=== PATIENT | male | born 1980 | race Caucasian/White ===

== ENCOUNTER 2016-09-13 04:44 | Emergency (ER) | payer BC, OTHER ==
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
[2016-09-13] MEDS ORDERED: IPRATROPIUM/ALBUTEROL 0.5-2.5 MG/3 ML AMPUL NEB ONE ×2 (05:17)
[2016-09-13] MEDS ORDERED: METHYLPREDNISOLONE INJ 125 MG/2 ML SDV IV ONE (05:17)
[2016-09-13 05:42] LABS: ABSOLUTE BASOPHILS # (AUTO) 0.1 10^3/uL (0.0-0.2); ABSOLUTE EOSINOPHILS # (AUTO) 0.9 10^3/uL (0.0-0.6); ABSOLUTE LYMPHOCYTES (AUTO) 1.2 10^3/uL (0.5-4.7); ABSOLUTE MONOCYTES (AUTO) 0.6 10^3/uL (0.1-1.4); BASOPHILS % (AUTO) 0.6 % (0-2); EOSINOPHILS % (AUTO) 10.6 % (0-6); HEMATOCRIT 39.6 % (37.9-51.0); HEMOGLOBIN 13.4 g/dL (13.5-17.0); HGB HCT DIFFERENCE 0.6; LYMPHOCYTES % (AUTO) 13.8 % (13-45); MEAN CORPUSCULAR HEMOGLOBIN 28.3 pg (27.0-33.4); MEAN CORPUSCULAR HGB CONC 33.9 g/dL (32.0-36.0); MEAN CORPUSCULAR VOLUME 84 fl (80-97); MONOCYTES % (AUTO) 7.3 % (3-13); RED BLOOD COUNT 4.75 10^6/uL (4.35-5.55); RED CELL DISTRIBUTION WIDTH 12.5 % (11.5-14.0); SEGMENTED NEUTROPHILS % (AUTO) 67.7 % (42-78); WHITE BLOOD COUNT 8.8 10^3/uL (4.0-10.5)
[2016-09-13] MEDS: MAGNESIUM SULFATE/D5W 100 ML IV SCH ×2 (05:52→06:22)
[2016-09-13 05:54] LABS: ALANINE AMINOTRANSFERASE 47 U/L (21-72); ALBUMIN 4.1 g/dL (3.5-5.0); ALKALINE PHOSPHATASE 99 U/L (38-126); ANION GAP 12 (5-19); ASPARTATE AMINO TRANSFERASE 55 U/L (17-59); BILIRUBIN,DIRECT 0.3 mg/dL (0.0-0.4); BILIRUBIN,TOTAL 0.6 mg/dL (0.2-1.3); BLOOD UREA NITROGEN 10 mg/dL (7-20); CALCIUM 9.4 mg/dL (8.4-10.2); CARBON DIOXIDE 26 mmol/L (22-30); CHLORIDE 102 mmol/L (98-107); CREATININE RESULT 0.74 mg/dL (0.52-1.25); GLUCOSE 149 mg/dL (75-110); MAGNESIUM 1.9 mg/dL (1.6-2.3); POTASSIUM 3.7 mmol/L (3.6-5.0); SODIUM 139.9 mmol/L (137-145)
--- NOTE | 2016-09-13 06:10 | RADIOLOGY REPORT (SQ) ---
EXAM DESCRIPTION: CHEST SINGLE VIEW COMPLETED DATE/TIME: 09/13/2016 5:57 am REASON FOR STUDY: dyspnea COMPARISON: 11.8.11 EXAM PARAMETERS: NUMBER OF VIEWS: One view. TECHNIQUE: Single frontal radiographic view of the chest acquired. RADIATION DOSE: NA LIMITATIONS: None. FINDINGS: LUNGS AND PLEURA: No opacities, masses or pneumothorax. No pleural effusion. MEDIASTINUM AND HILAR STRUCTURES: No masses. Contour normal. HEART AND VASCULAR STRUCTURES: Heart normal in size. Normal vasculature. BONES: No acute findings. HARDWARE: None in the chest. OTHER: No other significant finding. IMPRESSION: NO ACUTE RADIOGRAPHIC FINDING IN THE CHEST. TECHNICAL DOCUMENTATION: JOB ID: [id number]
[2016-09-13 06:13] LABS: TROPONIN I < 0.012 ng/mL
--- NOTE | 2016-09-13 07:32 | ER Document Report ---
ED General - General Chief Complaint: Shortness Of Breath Stated Complaint: BREATHING DIFFICULTY Time Seen by Provider: 09/13/16 05:11 Mode of Arrival: Medic Information source: Patient Notes: 36-year-old male extensive history of smoking presents with complaint of wheezing shortness of breath. Patient notes intermittently has wheezing, uses his mother's albuterol inhaler which improved his system. Patient denies any fevers or chills admits to intermittent productive cough. Patient adamantly refuses admission TRAVEL OUTSIDE OF THE [place] IN LAST 30 DAYS: No - HPI Onset: Other - A 3 day duration Onset/Duration: Persistent Quality of pain: No pain Severity: Mild Pain Level: 1 Associated symptoms: Productive cough, Shortness of breath Exacerbated by: Walking Relieved by: Denies Similar symptoms previously: Yes Recently seen / treated by doctor: No - Related Data Allergies/Adverse Reactions: No Known Allergies Allergy (Verified 02/15/14 10:44) Past Medical History - General Information source: Patient - Social History Smoking Status: Current Every Day Smoker Cigarette use (# per day): Yes Chew tobacco use (# tins/day): No Smoking Education Provided: Yes - Patient counselled regarding cessation for 4 minutes Frequency of alcohol use: None Drug Abuse: None Family History: Reviewed & Not Pertinent Patient has suicidal ideation: No Patient has homicidal ideation: No - Past Medical History Cardiac Medical History: Denies: Hx Coronary Artery Disease, Hx Heart Attack, Hx Hypertension Pulmonary Medical History: Reports: Hx COPD Denies: Hx Asthma, Hx Bronchitis, Hx Pneumonia Neurological Medical History: Denies: Hx Cerebrovascular Accident, Hx Seizures Renal/ Medical History: Denies: Hx Peritoneal Dialysis Musculoskeltal Medical History: Reports Hx Arthritis Past Surgical History: Reports: Hx Abdominal Surgery - "celiac artery compression release", Hx Neurologic Surgery - Immunizations Hx Diphtheria, Pertussis, Tetanus Vaccination: No Review of Systems - Review of Systems Notes: PHYSICAL EXAMINATION: GENERAL: Well-appearing, well-nourished and in no acute distress. HEAD: Atraumatic, normocephalic. EYES: Pupils equal round and reactive to light, extraocular movements intact, sclera anicteric, conjunctiva are normal. ENT: Nares patent, oropharynx clear without exudates. Moist mucous membranes. NECK: Normal range of motion, supple without lymphadenopathy LUNGS: Inspiratory expiratory wheezing all throughout no significant distress HEART: Regular rate and rhythm without murmurs ABDOMEN: Soft, nontender, nondistended abdomen. No guarding, no rebound. No masses appreciated. Musculoskeletal: Normal range of motion, no pitting or edema. No cyanosis. NEUROLOGICAL: Cranial nerves grossly intact. Normal speech, normal gait. Normal sensory, motor exams PSYCH: Normal mood, normal affect. SKIN: Warm, Dry, normal turgor, no rashes or lesions noted. Physical Exam - Vital signs Vitals: Resp Pulse Ox 22 H 95 09/13/16 04:48 09/13/16 04:48 Course - Re-evaluation Re-evalutation: 09/13/16 07:32 Patient was immediately treated on arrival, he received multiple DuoNeb's magnesium, he was on oxygen, when I evaluated him he was on 3 L nasal cannula, patient was adamant that he will not be admitted, I feel this is a terrible decision and he will be leaving AGAINST MEDICAL ADVICE. Patient was ambulated without oxygen on and desatted to about 89% at rest, father is in the room and denies any concerns himself After performing a Medical Screening Examination, I spoke with the patient at length in regards to leaving the hospital against medical advice. I do not believe the patient should leave but the patient is alert oriented x4, understands the risks and benefits of staying and leaving including disability and . Pt understands that he can return at any time for further care and is more than welcome to do so. Pt verbalizes this understanding. - Vital Signs Vital signs: Temp Pulse Resp BP Pulse Ox 98.7 F 145 H 20 117/80 92 09/13/16 04:56 09/13/16 04:56 09/13/16 07:07 09/13/16 07:00 09/13/16 07:01 - Laboratory Result Diagrams: 09/13/16 05:27 09/13/16 05:27 Laboratory results interpreted by me: 09/13/16 09/13/16 09/13/16 05:27 05:27 05:27 Hgb 13.4 L Eosinophils % 10.6 H Absolute Eosinophils 0.9 H Glucose 149 H NT-Pro-B Natriuret Pep 134 H - Diagnostic Test Radiology reviewed: Image reviewed, Reports reviewed Discharge - Discharge Clinical Impression: COPD exacerbation, Hypoxemia, Tachycardia Condition: Poor Disposition: AGAINST MEDICAL ADVICE Instructions: Chronic Obstructive Lung Disease ([facility]) Additional Instructions: Follow up with your physician tomorrow for further care or return to the ED IMMEDIATELY if symptoms worsen or new concerns occur. If you cannot afford to follow up with your primary care physician a list of low cost clinics have been provided at the end of your discharge papers as well. Prescriptions: Albuterol Sulfate [Proair HFA Inhalation Aerosol 8.5 gm MDI] 2 puff IH Q4H PRN # 1 mdi PRN Reason: Albuterol Sulfate [Albuterol Sulfate 5mg/1 mL] 5 mg PO Q4 PRN 30 Days PRN Reason: Prednisone 60 mg PO DAILY #15 tablet
--- NOTE | 2016-09-13 07:54 | EKG REPORT ---
SEVERITY:- OTHERWISE NORMAL ECG - SINUS TACHYCARDIA : Confirmed by: Sher Lopez MD 13-Sep-2016 07:53:34
[2016-09-13 08:50] VITALS: BP 124/76
== END 2016-09-13 08:55 | disposition left against medical advice (07) ==
LOC: ER 04:44
DX: J44.1 Chronic obstructive pulmonary disease with (acute) exacerbation (principal); R09.02 Hypoxemia; R05 Cough; R00.0 Tachycardia, unspecified; R06.02 Shortness of breath; F17.210 Nicotine dependence, cigarettes, uncomplicated; Z71.6 Tobacco abuse counseling; Z53.20 Procedure and treatment not carried out because of patient's decision for unspecified reasons
CPT/HCPCS: 93005; 96376; 99406; 94640 ×2; 99285; 96374; 96375; 36415; 87040; 83735; 85025; 80053; 84484; 83880; 71010; 93010; J2930; J3475; J7620

== ENCOUNTER 2016-12-03 12:31 | Emergency (ER) | payer MEDICARE, OTHER ==
[2016-12-03] MEDS ORDERED: METHYLPREDNISOLONE INJ 125 MG/2 ML SDV IV ONE (12:43)
[2016-12-03] MEDS ORDERED: MAGNESIUM SULFATE/D5W 100 ML IV ONE (12:44)
--- NOTE | 2016-12-03 12:48 | ER Document Report ---
ED General - General Stated Complaint: DIFFICULTY BREATHING Time Seen by Provider: 12/03/16 12:39 TRAVEL OUTSIDE OF THE [place] IN LAST 30 DAYS: No - HPI Patient complains to provider of: Shortness of breath Notes: Pleasant 36-year-old obese male presents with increasing work of breathing for last 2 days. Patient is taken approximately 20 nebulizer treatments at home without relief of symptoms. Patient has history of COPD and asthma but continues to smoke approximately 2 packs of cigarettes per day. Patient denies any nausea, vomiting, chest pain, new edema, fever, chills, dysuria diarrhea. Patient has never been intubated in the past and has never been admitted to the hospital for respiratory distress. Patient states he normally will feel better be able to go home. - Related Data Allergies/Adverse Reactions: No Known Allergies Allergy (Verified 02/15/14 10:44) Past Medical History - Social History Smoking Status: Current Every Day Smoker Family History: Reviewed & Not Pertinent - Past Medical History Cardiac Medical History: Denies: Hx Coronary Artery Disease, Hx Heart Attack, Hx Hypertension Pulmonary Medical History: Reports: Hx COPD Denies: Hx Asthma, Hx Bronchitis, Hx Pneumonia Neurological Medical History: Denies: Hx Cerebrovascular Accident, Hx Seizures Renal/ Medical History: Denies: Hx Peritoneal Dialysis Musculoskeltal Medical History: Reports Hx Arthritis Past Surgical History: Reports: Hx Abdominal Surgery - "celiac artery compression release", Hx Neurologic Surgery - Immunizations Hx Diphtheria, Pertussis, Tetanus Vaccination: No Review of Systems - Review of Systems Constitutional: No symptoms reported EENT: No symptoms reported Cardiovascular: No symptoms reported Respiratory: Short of breath Gastrointestinal: No symptoms reported Genitourinary: No symptoms reported Male Genitourinary: No symptoms reported Musculoskeletal: No symptoms reported Skin: No symptoms reported Hematologic/Lymphatic: No symptoms reported Neurological/Psychological: No symptoms reported Physical Exam - Vital signs Interpretation: Normal - General General appearance: Appears well, Alert - HEENT Head: Normocephalic, Atraumatic Eyes: Normal Pupils: PERRL - Respiratory Respiratory status: Respiratory distress Chest status: Nontender Breath sounds: Decreased air movement, Rhonchi Chest palpation: Normal - Cardiovascular Rhythm: Regular Heart sounds: Normal auscultation Murmur: No - Abdominal Inspection: Normal Distension: No distension Bowel sounds: Normal Tenderness: Nontender Organomegaly: No organomegaly - Back Back: Normal, Nontender - Extremities General upper extremity: Normal inspection, Nontender, Normal color, Normal ROM , Normal temperature General lower extremity: Normal inspection, Nontender, Normal color, Normal ROM , Normal temperature, Normal weight bearing. No: Sanford's sign - Neurological Neuro grossly intact: Yes Cognition: Normal Orientation: AAOx4 [place] Coma Scale Eye Opening: Spontaneous Cuco Coma Scale Verbal: Oriented Cuco Coma Scale Motor: Obeys Commands Cuco Coma Scale Total: 15 Speech: Normal Motor strength normal: LUE, RUE, LLE, RLE Sensory: Normal - Psychological Associated symptoms: Normal affect, Normal mood - Skin Skin Temperature: Warm Skin Moisture: Dry Skin Color: Normal Course - Re-evaluation Re-evalutation: 12/03/16 12:48 Morbidly obese man with history of lung pathology presents with increasing work of breathing mild hypoxia. Patient on oxygen saturations presently 90% prehospital.
--- NOTE | 2016-12-03 12:53 | ER Document Report ---
ED Respiratory Problem - General Chief Complaint: Respiratory Distress Stated Complaint: DIFFICULTY BREATHING Time Seen by Provider: 12/03/16 12:39 TRAVEL OUTSIDE OF THE [place] IN LAST 30 DAYS: No - HPI Patient complains to provider of: Asthma, COPD Notes: Pleasant 36-year-old obese male presents with increasing work of breathing for last 2 days. Patient is taken approximately 20 nebulizer treatments at home without relief of symptoms. Patient has history of COPD and asthma but continues to smoke approximately 2 packs of cigarettes per day. Patient denies any nausea, vomiting, chest pain, new edema, fever, chills, dysuria diarrhea. Patient has never been intubated in the past and has never been admitted to the hospital for respiratory distress. Patient states he normally will feel better be able to go home. - Related Data Allergies/Adverse Reactions: No Known Allergies Allergy (Verified 02/15/14 10:44) Home Medications: Current Home Medications Albuterol Sulfate [Albuterol Sulfate 2.5mg/3 mL] 1 vial IH Q4 PRN 12/03/16 [ History] Albuterol Sulfate [Proair Hfa Inhalation Aerosol 8.5 gm Mdi] 1 puff IH Q4HP PRN 12/03/16 [History] Alprazolam [Xanax] 2 mg PO Q8 12/03/16 [History] Oxycodone HCl 20 mg PO Q6 12/03/16 [History] Past Medical History - Social History Smoking Status: Current Every Day Smoker Family History: Reviewed & Not Pertinent - Past Medical History Cardiac Medical History: Denies: Hx Coronary Artery Disease, Hx Heart Attack, Hx Hypertension Pulmonary Medical History: Reports: Hx COPD Denies: Hx Asthma, Hx Bronchitis, Hx Pneumonia Neurological Medical History: Denies: Hx Cerebrovascular Accident, Hx Seizures Renal/ Medical History: Denies: Hx Peritoneal Dialysis Musculoskeltal Medical History: Reports Hx Arthritis Past Surgical History: Reports: Hx Abdominal Surgery - "celiac artery compression release", Hx Neurologic Surgery - Immunizations Hx Diphtheria, Pertussis, Tetanus Vaccination: No Review of Systems - Review of Systems Constitutional: No symptoms reported EENT: No symptoms reported Cardiovascular: No symptoms reported Respiratory: Cough, Short of breath Gastrointestinal: No symptoms reported Genitourinary: No symptoms reported Male Genitourinary: No symptoms reported Musculoskeletal: No symptoms reported Skin: No symptoms reported Hematologic/Lymphatic: No symptoms reported Neurological/Psychological: No symptoms reported Physical Exam - Vital signs Vitals: Resp Pulse Ox 24 H 97 12/03/16 12:39 12/03/16 12:39 Interpretation: Normal - General General appearance: Appears well, Alert - HEENT Head: Normocephalic, Atraumatic Eyes: Normal Pupils: PERRL - Respiratory Respiratory status: Respiratory distress Chest status: Nontender Breath sounds: Decreased air movement, Rhonchi Chest palpation: Normal - Cardiovascular Rhythm: Regular Heart sounds: Normal auscultation Murmur: No - Abdominal Inspection: Normal Distension: No distension Bowel sounds: Normal Tenderness: Nontender Organomegaly: No organomegaly - Back Back: Normal, Nontender - Extremities General upper extremity: Normal inspection, Nontender, Normal color, Normal ROM , Normal temperature General lower extremity: Normal inspection, Nontender, Normal color, Normal ROM , Normal temperature, Normal weight bearing. No: Sanford's sign - Neurological Neuro grossly intact: Yes Cognition: Normal Orientation: AAOx4 [place] Coma Scale Eye Opening: Spontaneous [place] Coma Scale Verbal: Oriented Cuco Coma Scale Motor: Obeys Commands [place] Coma Scale Total: 15 Speech: Normal Motor strength normal: LUE, RUE, LLE, RLE Sensory: Normal - Psychological Associated symptoms: Normal affect, Normal mood - Skin Skin Temperature: Warm Skin Moisture: Dry Skin Color: Normal Course - Re-evaluation Re-evalutation: 12/03/16 12:55 Ill-appearing morbidly obese man presents mildly hypoxic. Patient emergently placed on BiPAP in the emergency department. 12/03/16 15:06 Patient's chest x-ray shows no focal infiltrate. Patient's oxygen saturation off his BiPAP quickly dropped to the 90s into the 80s. Patient given multiple breathing treatments IV magnesium, IV steroids. States she is feeling much better but is still hypoxic. Walking pulse ox 82%. Patient will be admitted to the hospital for further managed Update Patient refusing admission to the hospital, leaving AGAINST MEDICAL ADVICE. Patient has full decision-making capacity his does understand the risks. Patient will be given prescription for oral steroids and albuterol if he does worse. Hospitalist talk with patient multiple times trying to convince him to be staying in the hospital. 12/03/16 15:15 Department now AGAINST MEDICAL ADVICE - Vital Signs Vital signs: Temp Pulse Resp BP Pulse Ox 18 122/70 100 12/03/16 13:10 12/03/16 13:06 12/03/16 13:10 12/03/16 12:57 - Laboratory Laboratory results interpreted by me: 12/03/16 13:30 ABG pO2 57.7 L ABG Total CO2 27.2 H ABG O2 Saturation 89.6 L - Diagnostic Test Radiology reviewed: Reports reviewed - EKG Interpretation by Me Additional EKG results interpreted by me: 12/03/16 12:57 Sinus tachycardia, normal intervals, no delta waves, no pathologic T-wave inversions no ST elevations or depression Discharge - Discharge Clinical Impression: Hypoxia, Asthma attack Condition: Serious Disposition: ADMITTED INPATIENT Admitting Provider: Hospitalist Instructions: Asthma ([facility]) Prescriptions: Albuterol Sulfate [Proair HFA Inhalation Aerosol 8.5 gm MDI] 2 puff IH Q4H PRN # 1 mdi PRN Reason: Levalbuterol Tartrate [Levalbuterol Tartrate Hfa] 15 gm IH Q6H PRN #1 hfa.aer.ad PRN Reason: Shortness Of Breath Prednisone [Deltasone 10 mg Tablet] 40 mg PO DAILY 3 Days
[2016-12-03 13:16] VITALS: BP 122/70
--- NOTE | 2016-12-03 13:27 | RADIOLOGY REPORT (SQ) ---
EXAM DESCRIPTION: CHEST SINGLE VIEW COMPLETED DATE/TIME: 12/03/2016 1:16 pm REASON FOR STUDY: sob COMPARISON: August 2016 EXAM PARAMETERS: NUMBER OF VIEWS: One view. TECHNIQUE: Single frontal radiographic view of the chest acquired. RADIATION DOSE: NA LIMITATIONS: None. FINDINGS: LUNGS AND PLEURA: No opacities, masses or pneumothorax. No pleural effusion. MEDIASTINUM AND HILAR STRUCTURES: No masses. Contour normal. HEART AND VASCULAR STRUCTURES: Heart normal in size. Normal vasculature. BONES: No acute findings. HARDWARE: None in the chest. OTHER: No other significant finding. IMPRESSION: NO ACUTE RADIOGRAPHIC FINDING IN THE CHEST. TECHNICAL DOCUMENTATION: JOB ID: [id number]
[2016-12-03 13:59] LABS: ARTERIAL BLOOD BASE EXCESS 0.5 mmol/L; ARTERIAL BLOOD O2 SATURATION 89.6 % (94-98)
[2016-12-03] MEDS ORDERED: IPRATROPIUM/ALBUTEROL 0.5-2.5 MG/3 ML AMPUL NEB ONE ×2 (14:25)
--- NOTE | 2016-12-03 16:34 | EKG REPORT ---
SEVERITY:- OTHERWISE NORMAL ECG - SINUS TACHYCARDIA : Confirmed by: Jennifer Lawrence 03-Dec-2016 16:34:03
== END 2016-12-03 15:39 | disposition left against medical advice (07) ==
LOC: ER 12:31
DX: J45.901 Unspecified asthma with (acute) exacerbation (principal); J44.9 Chronic obstructive pulmonary disease, unspecified; F17.210 Nicotine dependence, cigarettes, uncomplicated
CPT/HCPCS: 93005; 94640 ×2; 99285; 96375; 96365; 82803; 71010; 93010; 94660; J2930; J3475; A9270; J7620

== ENCOUNTER 2017-01-24 09:22 | Emergency (ER) | payer MEDICARE ==
[2017-01-24 09:59] LABS: ABSOLUTE EOSINOPHILS # (AUTO) 1.1 10^3/uL (0.0-0.6); ABSOLUTE LYMPHOCYTES (AUTO) 1.1 10^3/uL (0.5-4.7); ABSOLUTE MONOCYTES (AUTO) 0.6 10^3/uL (0.1-1.4); ABSOLUTE NEUT (AUTO) 6.7 10^3/uL (1.7-8.2); BASOPHILS % (AUTO) 0.4 % (0-2); EOSINOPHILS % (AUTO) 11.4 % (0-6); HEMATOCRIT 40.9 % (37.9-51.0); HEMOGLOBIN 13.9 g/dL (13.5-17.0); HGB HCT DIFFERENCE 0.8; LYMPHOCYTES % (AUTO) 11.7 % (13-45); MEAN CORPUSCULAR HEMOGLOBIN 28.3 pg (27.0-33.4); MEAN CORPUSCULAR HGB CONC 34.1 g/dL (32.0-36.0); MEAN CORPUSCULAR VOLUME 83 fl (80-97); MONOCYTES % (AUTO) 6.3 % (3-13); RED BLOOD COUNT 4.93 10^6/uL (4.35-5.55); RED CELL DISTRIBUTION WIDTH 13.4 % (11.5-14.0); SEGMENTED NEUTROPHILS % (AUTO) 70.2 % (42-78); WHITE BLOOD COUNT 9.6 10^3/uL (4.0-10.5)
[2017-01-24 10:03] LABS: VENOUS BLOOD PCO2 35.5 mmHg (35-63); VENOUS BLOOD PH 7.41 (7.30-7.42)
[2017-01-24] MEDS: MAGNESIUM SULFATE/D5W 1 GM/100 ML RTUPB IV SCH ×2 (10:11→10:12)
[2017-01-24 10:34] LABS: ALANINE AMINOTRANSFERASE 23 U/L (21-72); ALBUMIN 4.4 g/dL (3.5-5.0); ALKALINE PHOSPHATASE 74 U/L (38-126); ANION GAP 13 (5-19); ASPARTATE AMINO TRANSFERASE 34 U/L (17-59); BILIRUBIN,DIRECT 0.4 mg/dL (0.0-0.4); BILIRUBIN,TOTAL 0.5 mg/dL (0.2-1.3); BLOOD UREA NITROGEN 11 mg/dL (7-20); CALCIUM 9.2 mg/dL (8.4-10.2); CARBON DIOXIDE 24 mmol/L (22-30); CHLORIDE 107 mmol/L (98-107); CREATINE KINASE 117 U/L (55-170); CREATININE RESULT 0.77 mg/dL (0.52-1.25); GLUCOSE 124 mg/dL (75-110); POTASSIUM 3.5 mmol/L (3.6-5.0); SODIUM 143.6 mmol/L (137-145); TOTAL PROTEIN 7.3 g/dL (6.3-8.2)
--- NOTE | 2017-01-24 10:35 | RADIOLOGY REPORT (SQ) ---
EXAM DESCRIPTION: CHEST PA/LAT COMPLETED DATE/TIME: 01/24/2017 10:22 am REASON FOR STUDY: cough and wheeze COMPARISON: 03/01/2011 EXAM PARAMETERS: NUMBER OF VIEWS: two views TECHNIQUE: Digital Frontal and Lateral radiographic views of the chest acquired. RADIATION DOSE: NA LIMITATIONS: none FINDINGS: LUNGS AND PLEURA: There is limited opacity in the right lower lung field. An infiltrate i s not really appreciated on the lateral. There is no pleural effusion. No mass is seen. MEDIASTINUM AND HILAR STRUCTURES: No masses or contour abnormalities. HEART AND VASCULAR STRUCTURES: Heart normal size. No evidence for failure. BONES: No acute findings. HARDWARE: None in the chest. OTHER: No other significant finding. IMPRESSION: Cannot exclude a limited right lower lobe or middle lobe infiltrate. TECHNICAL DOCUMENTATION: JOB ID: [id number] [employer]- All Rights Reserved
[2017-01-24 10:39] LABS: CREATINE KINASE MB 0.83 ng/mL (<4.55); TROPONIN I < 0.012 ng/mL
--- NOTE | 2017-01-24 10:49 | ER Document Report ---
ED General - General Stated Complaint: DIFFICULTY BREATHING Time Seen by Provider: 01/24/17 09:28 TRAVEL OUTSIDE OF THE [place] IN LAST 30 DAYS: No - HPI Notes: Patient is a 36-year-old male with a history of tobacco abuse and asthma presents the ED complaining of shortness of breath and wheezing that began this morning. Patient states that he has had 2 acute exacerbations in the last 4 months and was treated in the ED and discharged in stable condition. 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 Patient states that he does continue to smoke, but is working on quitting. Patient states that he did do nebulizer treatments at home as well as in the ambulance on the way here which did help some of his symptoms. Patient states that he does continue to feel wheezy. He denies any other significant past medical history or drug allergies. Denies any IV drug use. Patient denies any admission to the hospital for respiratory distress or any intubations for respiratory distress. Denies any headache, fever, neck pain, URI, sore throat, chest pain, palpitations, syncope, abdominal pain, nausea/vomiting/diarrhea, urinary retention, dysuria, hematuria , or rash. Denies any cardiac history, DVT, PE. - Related Data Allergies/Adverse Reactions: No Known Allergies Allergy (Verified 02/15/14 10:44) Past Medical History - Social History Smoking Status: Current Every Day Smoker Family History: Reviewed & Not Pertinent - Past Medical History Cardiac Medical History: Denies: Hx Coronary Artery Disease, Hx Heart Attack, Hx Hypertension Pulmonary Medical History: Reports: Hx COPD Denies: Hx Asthma, Hx Bronchitis, Hx Pneumonia Neurological Medical History: Denies: Hx Cerebrovascular Accident, Hx Seizures Renal/ Medical History: Denies: Hx Peritoneal Dialysis Musculoskeltal Medical History: Reports Hx Arthritis Past Surgical History: Reports: Hx Abdominal Surgery - "celiac artery compression release", Hx Neurologic Surgery - Immunizations Hx Diphtheria, Pertussis, Tetanus Vaccination: No Review of Systems - Review of Systems Notes: REVIEW OF SYSTEMS: CONSTITUTIONAL : Denies fever, chills, or sweats. Denies recent illness. EENT: Denies eye, ear, throat, or mouth pain or symptoms. Denies nasal or sinus congestion or discharge. Denies throat, tongue, or mouth swelling or difficulty swallowing. CARDIOVASCULAR: Denies chest pain. Denies palpitations or racing or irregular heart beat. Denies ankle edema. RESPIRATORY: see hpi GASTROINTESTINAL: Denies abdominal pain or distention. Denies nausea, vomiting , or diarrhea. Denies blood in vomitus, stools, or per rectum. Denies black, tarry stools. Denies constipation. GENITOURINARY: Denies difficulty urinating, painful urination, burning, frequency, blood in urine, or discharge. MUSCULOSKELETAL: Denies back or neck pain or stiffness. Denies joint pain or swelling. SKIN: Denies rash, lesions or sores. NEUROLOGICAL: Denies confusion or altered mental status. Denies passing out or loss of consciousness. Denies dizziness or lightheadedness. Denies headache. Denies weakness or paralysis or loss of use of either side. Denies problems with gait or speech. Denies sensory loss, numbness, or tingling. ALL OTHER SYSTEMS REVIEWED AND NEGATIVE. Dictation was performed using [employer] voice recognition software Physical Exam - Vital signs Vitals: Pulse Ox 98 01/24/17 09:25 Notes: PHYSICAL EXAMINATION: GENERAL: Well-appearing, well-nourished and in no acute distress. A&Ox4 HEAD: Atraumatic, normocephalic. EYES: Pupils equal round and reactive to light, extraocular movements intact, sclera anicteric, conjunctiva are normal. ENT: Nares patent and without discharge. oropharynx clear without exudates. No tonsilar hypertrophy or erythema. Moist mucous membranes. No sinus tenderness. NECK: Normal range of motion, supple without lymphadenopathy. No rigidity/ meningismus. LUNGS: wheezes b/l. prolonged expiration HEART: Regular rate and rhythm without murmurs, rubs, gallops. Is ABDOMEN: Soft, nontender, nondistended abdomen. No guarding, no rebound. No masses appreciated. Normal bowel sounds present. No CVA tenderness bilaterally. Musculoskeletal: FROM to passive/active. Strength 5+/5. No calf tenderness, abby neg. Extremities: No cyanosis, clubbing, or edema b/l. Peripheral pulses 2+. Capillary refill less than 3 seconds. NEUROLOGICAL: Normal speech, normal gait. Normal sensory, motor exams PSYCH: Normal mood, normal affect. SKIN: Warm, Dry, normal turgor, no rashes or lesions noted. Course - Re-evaluation Re-evalutation: 01/24/17 12:49 Patient is an afebrile, well-hydrated, 36-year-old male who presents the ED with acute asthma exacerbation (?possible mild COPD) and suspected pneumonia based on H&P today. Vitals are stable. PE is otherwise unremarkable. We are able to keep patient's oxygen saturation greater than 95% on room air while in the ED which was confirmed with an ambulatory test. See x-ray result. Patient was given a DuoNeb treatment along with magnesium IV. CBC, CMP, cardiac/EKG x1 unremarkable. Pt has a heart score of 1. Patient received nebulizer treatments in the ambulance as well as Solu-Medrol. Patient states that he has an inhaler at home. I will send him home with a prescription to finish out the Levaquin as a first dose was given here in the ED. I will also send him home with a prescription for a steroid tapering dose. Low suspicion for any ACS, PE , pneumothorax, pericarditis, dissection, sepsis, respiratory failure/ compromise. Patient is aware that his condition can change from initial presentation and he needs to monitor symptoms closely and seek medical attention if any acute changes. Conservative measures otherwise for symptoms. Recheck with your PCM in 2-3 days. Return to the ED with any worsening/ concerning symptoms otherwise as reviewed discharge. Patient is in agreement. Pt has no desire for being admitted. Reviewed that his current condition would be a difficult case for admitting anyway at this time. If he fails home/out patient therapy, he will agree to being admitted. - Vital Signs Vital signs: Temp Pulse Resp BP Pulse Ox 98 01/24/17 09:25 - Laboratory Result Diagrams: 01/24/17 09:45 01/24/17 09:45 Laboratory results interpreted by me: 01/24/17 01/24/17 09:45 09:45 Lymphocytes % 11.7 L Eosinophils % 11.4 H Absolute Eosinophils 1.1 H Potassium 3.5 L Glucose 124 H Discharge - Discharge Clinical Impression: Asthma with COPD with exacerbation Pneumonia Qualifiers: Pneumonia type: due to unspecified organism Laterality: right Lung location: unspecified part of lung Qualified Code(s): J18.9 - Pneumonia, unspecified organism Condition: Stable Disposition: HOME, SELF-CARE Instructions: Pneumonia ([facility]), Inhaled Bronchodilators ([facility]), Levofloxacin, Steroid Medication, Follow-Up Care ([facility]) Additional Instructions: Maintain adequate fluid intake Take meds as directed Use at home nebs/meds as directed tylenol/ibuprofen as needed over the counter cold medication as needed for symptoms Humidified air may help F/u: with your PCM in 2-3 days for a recheck Consider a consult with pulmonology* Return to the ED with any worsening symptoms and/or development of fever, headache, chest pain, palpitations, syncope, shortness of breath, trouble breathing, abdominal pain, n/v/d, blood in stool/urine, loss of control of bowel /bladder, or other worsening symptoms that are concerning to you. Prescriptions: Levofloxacin [Levaquin 750 mg Tablet] 750 mg PO DAILY #4 tablet Prednisone [Deltasone 10 mg Tablet] 10 mg PO ASDIR PRN #21 tablet PRN Reason: Referrals: RAGHAV PORTER MD [Primary Care Provider] - 01/26/17
[2017-01-24] MEDS ORDERED: IPRATROPIUM/ALBUTEROL 0.5-2.5 MG/3 ML AMPUL NEB ONE (11:11)
[2017-01-24] MEDS ORDERED: LEVOFLOXACIN 750 MG TABLET PO ONE (11:11)
[2017-01-24 13:12] VITALS: BP 135/116
--- NOTE | 2017-01-24 18:18 | EKG REPORT ---
SEVERITY:- NORMAL ECG - SINUS RHYTHM : Confirmed by: Lianet Sharp MD 24-Jan-2017 18:17:37
== END 2017-01-24 13:17 | disposition home or self-care (01) ==
LOC: ER 09:22
DX: J44.0 Chronic obstructive pulmonary disease with (acute) lower respiratory infection (principal); J18.9 Pneumonia, unspecified organism; J44.1 Chronic obstructive pulmonary disease with (acute) exacerbation; F17.200 Nicotine dependence, unspecified, uncomplicated; R06.02 Shortness of breath
CPT/HCPCS: 93005; 94640; 99285; 96365; 36415; 82553; 82550; 85025; 80053; 84484; 82803; 71020; 93010; J3475; A9270 ×2; J7620

== ENCOUNTER 2017-05-10 01:30 | Observation (INO) | payer MEDICARE ==
[2017-05-10] MEDS ORDERED: ALBUTEROL SULFATE 0.083% NEB 2.5 MG/3 ML AMPUL NEB ONE ×2 (01:49→03:06)
[2017-05-10] MEDS ORDERED: METHYLPREDNISOLONE INJ 125 MG/2 ML SDV IV ONE (01:49)
[2017-05-10] MEDS: MAGNESIUM SULFATE/D5W 1 GM/100 ML RTUPB IV SCH ×2 (02:14→02:50)
--- NOTE | 2017-05-10 03:07 | ER Document Report ---
ED General - General Chief Complaint: Shortness Of Breath Stated Complaint: DIFFICULTY BREATHING Time Seen by Provider: 05/10/17 01:49 Notes: Patient is a 36-year-old male who presents with complaint of difficulty breathing. He has a history of COPD. For last 2 years he has had intermittent episodes of wheezing and difficulty breathing. He is a smoker. He never had asthma as a child. No fevers. No vomiting. No diarrhea. No other complaints at this time. He is still smoker. TRAVEL OUTSIDE OF THE [place] IN LAST 30 DAYS: No - Related Data Allergies/Adverse Reactions: No Known Allergies Allergy (Verified 02/15/14 10:44) Past Medical History - Social History Smoking Status: Current Every Day Smoker Chew tobacco use (# tins/day): No Frequency of alcohol use: None Drug Abuse: None Family History: Reviewed & Not Pertinent Patient has suicidal ideation: No Patient has homicidal ideation: No - Past Medical History Cardiac Medical History: Denies: Hx Coronary Artery Disease, Hx Heart Attack, Hx Hypertension Pulmonary Medical History: Reports: Hx COPD Denies: Hx Asthma, Hx Bronchitis, Hx Pneumonia Neurological Medical History: Denies: Hx Cerebrovascular Accident, Hx Seizures Renal/ Medical History: Denies: Hx Peritoneal Dialysis Musculoskeltal Medical History: Reports Hx Arthritis Past Surgical History: Reports: Hx Abdominal Surgery - "celiac artery compression release", Hx Neurologic Surgery - Immunizations Hx Diphtheria, Pertussis, Tetanus Vaccination: No Review of Systems - Review of Systems Notes: My Normal Review Basic REVIEW OF SYSTEMS: CONSTITUTIONAL : Denies fever, chills, or sweats. Denies recent illness. EENT: Denies eye, ear, throat, or mouth pain or symptoms. Denies nasal or sinus congestion. CARDIOVASCULAR: Denies chest pain. RESPIRATORY: Difficulty breathing. Wheezing. GASTROINTESTINAL: Denies abdominal pain. Denies nausea, vomiting, or diarrhea. Denies constipation. Last BM: MUSCULOSKELETAL: Denies neck or back pain or joint pain or swelling. SKIN: Denies rash or skin lesions. NEUROLOGICAL: Denies altered mental status or loss of consciousness. Denies headache. Denies weakness or paralysis or loss of use of either side. Denies problems with gait or speech. Denies sensory or motor loss. ALL OTHER SYSTEMS REVIEWED AND NEGATIVE. Physical Exam - Vital signs Vitals: Resp BP Pulse Ox 23 H 140/82 H 97 05/10/17 01:37 05/10/17 01:37 05/10/17 01:37 - Notes Notes: General Appearance: Well nourished, alert, cooperative, no acute distress, no obvious discomfort. Vitals: reviewed, See vital signs table. Head: no swelling or tenderness to the head Eyes: PERRL, EOMI, Conjuctiva clear Mouth: No decreasd moisture Throat: No tonsillar inflammation, No airway obstruction, No lymphadenopathy Neck: Supple, no neck tenderness, No thyromegaly Lungs: Diffuse wheezing. Fair air exchange. Some tachypnea. Is able to speak in almost full sentences. Heart: Cardiac rate, Regular rythm, No murmur, no rub Abdomen: Normal BS, soft, No rigidity, No abdominal tenderness, No guarding, no rebound, no abdominal masses, no organomegaly Extremities: strength 5/5 in all extremities, good pulses in all extremities, no swelling or tenderness in the extremities, no edema. Skin: warm, dry, appropriate color, no rash Neuro: speech clear, oriented x 3, normal affect, responds appropriately to questions. Course - Re-evaluation Re-evalutation: 05/10/17 03:06 Patient says he is feeling much improved. He was on 3 L of oxygen. Up titrate him down to 1 L of oxygen. His oxygen saturation is currently 93-95%. His lung [place] are still tight and wheezy. His heart rate is much improved. Will give another breathing treatment. I will obtain a chest x-ray and labs in case he does require admission as his lung [place] are still pretty tight and he is still requiring some supplemental oxygen. Will give another breathing treatment and reassess. Dictation of this chart was performed using voice recognition software; therefore, there may be some unintended grammatical errors. 05/10/17 04:44 First patient was going to sign out AMA as he does not like staying in the hospital. After he took off his oxygen his oxygen saturation continued decline and he started to feel bad and then he eventually admitted that he needs to stay in the hospital. I spoke with the hospitalist, Dr. Johnson, he agrees to admit the patient. Patient's lung auscultation has improved since he has been here but he still has a large amount of wheezing unfortunately still requiring oxygen. Without oxygen on his O2 saturations go down to 87% at rest. Dictation of this chart was performed using voice recognition software; therefore, there may be some unintended grammatical errors. - Vital Signs Vital signs: Temp Pulse Resp BP Pulse Ox 98.3 F 121 H 18 116/72 87 L 05/10/17 01:43 05/10/17 01:43 05/10/17 04:16 05/10/17 04:00 05/10/17 04:16 - Laboratory Result Diagrams: 05/10/17 02:15 05/10/17 02:15 Laboratory results interpreted by me: 05/10/17 02:15 Eosinophils % 15.6 H Absolute Eosinophils 1.2 H Discharge - Discharge Clinical Impression: Bronchitis, Hypoxemia Condition: Stable Disposition: ADMITTED OBSERVATION Admitting Provider: Hospitalist Unit Admitted: Telemetry Referrals: ADDIS SCOTT DO [Primary Care Provider] - Follow up as needed
[2017-05-10 03:19] LABS: ABSOLUTE BASOPHILS # (AUTO) 0.1 10^3/uL (0.0-0.2); ABSOLUTE EOSINOPHILS # (AUTO) 1.2 10^3/uL (0.0-0.6); ABSOLUTE MONOCYTES (AUTO) 0.4 10^3/uL (0.1-1.4); BASOPHILS % (AUTO) 0.8 % (0-2); EOSINOPHILS % (AUTO) 15.6 % (0-6); HEMATOCRIT 44.4 % (37.9-51.0); HEMOGLOBIN 14.9 g/dL (13.5-17.0); MEAN CORPUSCULAR HEMOGLOBIN 27.8 pg (27.0-33.4); MEAN CORPUSCULAR HGB CONC 33.4 g/dL (32.0-36.0); MEAN CORPUSCULAR VOLUME 83 fl (80-97); MONOCYTES % (AUTO) 5.7 % (3-13); PLATELET COUNT 239 10^3/uL (150-450); RED BLOOD COUNT 5.34 10^6/uL (4.35-5.55); RED CELL DISTRIBUTION WIDTH 13.8 % (11.5-14.0); SEGMENTED NEUTROPHILS % (AUTO) 51.9 % (42-78); TOTAL CELLS COUNTED % (AUTO) 100 %; WHITE BLOOD COUNT 7.8 10^3/uL (4.0-10.5)
[2017-05-10 03:29] LABS: ANION GAP 9 (5-19); BLOOD UREA NITROGEN 11 mg/dL (7-20); CALCIUM 9.9 mg/dL (8.4-10.2); CARBON DIOXIDE 29 mmol/L (22-30); CHLORIDE 102 mmol/L (98-107); GLUCOSE 89 mg/dL (75-110); POTASSIUM 4.6 mmol/L (3.6-5.0); SODIUM 140.4 mmol/L (137-145)
--- NOTE | 2017-05-10 04:20 | RADIOLOGY REPORT (SQ) ---
EXAM DESCRIPTION: CHEST SINGLE VIEW CLINICAL HISTORY: 36 years, Male, dyspnea COMPARISON: 10.3.17 FINDINGS: Normal lung volume, clear parenchyma, normal cardiac silhouette, and intact bony thorax. IMPRESSION: No acute cardiopulmonary findings. 2011 [employer]- All Rights Reserved
[2017-05-10] MEDS ORDERED: IPRATROPIUM/ALBUTEROL 0.5-2.5 MG/3 ML AMPUL NEB PRN (05:30)
[2017-05-10] MEDS ORDERED: MAGNESIUM HYDROXIDE SUSP 30 ML UDCUP PO PRN (05:30)
[2017-05-10] MEDS ORDERED: ACETAMINOPHEN 325 MG TABLET PO PRN (05:30)
[2017-05-10] MEDS ORDERED: CHLORPHENIRAMINE MALEATE 4 MG TABLET PO ONE (05:30)
[2017-05-10] MEDS ORDERED: MAG HYDROX/AL HYDROX/SIMETH SUSP 30 ML UDCUP PO PRN (05:30)
[2017-05-10] MEDS ORDERED: FLUTICASONE NASAL SPRAY 50 MCG/SPRY 120 SPRAY/16 GM NASL SCH (06:00)
[2017-05-10] MEDS ORDERED: HEPARIN SOD (PORCINE) 5,000 UNIT/ML 1 ML SYRINGE SUBCUT SCH (06:00)
[2017-05-10] MEDS ORDERED: LANSOPRAZOLE 30 MG TAB.RAP.DR PO SCH (06:00)
[2017-05-10 06:40] VITALS: BP 122/78
--- NOTE | 2017-05-10 06:47 | PDOC H&P ---
History of Present Illness Admission Date/PCP: 05/10/17 05:09 ADDIS SCOTT DO Patient complains of: Shortness of breath and cough History of Present Illness: AVERY LOO JR is a 36 year old male with a past medical history of opiate dependent chronic low back pain, benzodiazepine dependent anxiety, COPD and tobacco dependence. Patient presents after 10 days of rhinorrhea, sinusitis, nonproductive cough and increasing shortness of breath prompting evaluation in the emergency room. He denies infectious contacts or recent antibiotics, fever , chest pain, nausea or vomiting. In the emergency room he is found to have hypoxia by pulse oximetry in the mid 80s, diffuse wheezing with rales. There is no biochemical evidence for hypercapnia or hypoxia. Past Medical History Cardiac Medical History: Denies: Coronary Artery Disease, Myocardial Infarction, Hypertension Pulmonary Medical History: Reports: Chronic Obstructive Pulmonary Disease (COPD) Denies: Asthma, Bronchitis, Pneumonia Neurological Medical History: Denies: Seizures Endocrine Medical History: Reports: Obesity Musculoskeltal Medical History: Reports: Arthritis Psychiatric Medical History: Reports: General Anxiety Disorder, Tobacco Dependency Hematology: Denies: Anemia Past Surgical History Past Surgical History: Reports: Orthopedic Surgery - Lumbo-sacral fusion Social History Information Source: Patient Smoking Status: Current Every Day Smoker Frequency of Alcohol Use: None - Advance Directive Resuscitation Status: Full Code Family History Family History: COPD Parental Family History Reviewed: Yes Children Family History Reviewed: Yes Sibling(s) Family History Reviewed.: Yes Medication/Allergy Home Medications: Albuterol Sulfate [Albuterol Sulfate 2.5mg/3 mL] 1 vial IH Q4 PRN 12/03/16 Albuterol Sulfate [Proair HFA Inhalation Aerosol 8.5 gm MDI] 2 puff IH Q4H PRN # 1 mdi 12/03/16 Albuterol Sulfate [Proair Hfa Inhalation Aerosol 8.5 gm Mdi] 1 puff IH Q4HP PRN 12/03/16 Alprazolam [Xanax] 2 mg PO Q8 12/03/16 Levalbuterol Tartrate [Levalbuterol Tartrate Hfa] 15 gm IH Q6H PRN #1 hfa.aer.[id number] 12/03/16 Oxycodone HCl 20 mg PO Q6 12/03/16 Prednisone [Deltasone 10 mg Tablet] 40 mg PO DAILY 3 Days tablet 12/03/16 Levofloxacin [Levaquin 750 mg Tablet] 750 mg PO DAILY #4 tablet 01/24/17 Prednisone [Deltasone 10 mg Tablet] 10 mg PO ASDIR PRN #21 tablet 01/24/17 Allergies/Adverse Reactions: No Known Allergies Allergy (Verified 02/15/14 10:44) Review of Systems Constitutional: ABSENT: chills, fever(s), headache(s), weight gain, weight loss Eyes: ABSENT: visual disturbances Ears: ABSENT: hearing changes Cardiovascular: ABSENT: chest pain, dyspnea on exertion, edema, orthropnea, palpitations Respiratory: ABSENT: cough, hemoptysis Gastrointestinal: ABSENT: abdominal pain, constipation, diarrhea, hematemesis, hematochezia, nausea, vomiting Genitourinary: ABSENT: dysuria, hematuria Musculoskeletal: ABSENT: joint swelling Integumentary: ABSENT: rash, wounds Neurological: ABSENT: abnormal gait, abnormal speech, confusion, dizziness, focal weakness, syncope Psychiatric: ABSENT: anxiety, depression, homidical ideation, suicidal ideation Endocrine: ABSENT: cold intolerance, heat intolerance, polydipsia, polyuria Hematologic/Lymphatic: ABSENT: easy bleeding, easy bruising Physical Exam Vital Signs: Temp Pulse Resp BP Pulse Ox 98.3 F 121 H 17 126/78 H 92 05/10/17 01:43 05/10/17 01:43 05/10/17 05:20 05/10/17 05:00 05/10/17 05:20 General appearance: PRESENT: no acute distress, well-developed, well-nourished Head exam: PRESENT: atraumatic, normocephalic Eye exam: PRESENT: conjunctiva pink, EOMI, PERRLA. ABSENT: scleral icterus Ear exam: PRESENT: normal external ear exam Mouth exam: PRESENT: moist, tongue midline Neck exam: ABSENT: carotid bruit, JVD, lymphadenopathy, thyromegaly Respiratory exam: PRESENT: clear to auscultation alejandro, crackles, prolonged expiratory phas, symmetrical, tachypnea, wheezes. ABSENT: rales, rhonchi, stridor Cardiovascular exam: PRESENT: RRR. ABSENT: diastolic murmur, rubs, systolic murmur Pulses: PRESENT: normal dorsalis pedis pul Vascular exam: PRESENT: normal capillary refill GI/Abdominal exam: PRESENT: normal bowel sounds, soft. ABSENT: distended, guarding, mass, organolmegaly, rebound, tenderness Rectal exam: PRESENT: deferred Extremities exam: PRESENT: full ROM. ABSENT: calf tenderness, clubbing, pedal edema Neurological exam: PRESENT: alert, awake, oriented to person, oriented to place , oriented to time, oriented to situation, CN II-XII grossly intact. ABSENT: motor sensory deficit Psychiatric exam: PRESENT: appropriate affect, normal mood. ABSENT: homicidal ideation, suicidal ideation Skin exam: PRESENT: dry, intact, warm. ABSENT: cyanosis, rash Results Impressions: Chest X-Ray 05/10/17 03:06 IMPRESSION: No acute cardiopulmonary findings. 2010 [employer]- All Rights Reserved Assessment & Plan - Diagnosis (1) COPD exacerbation Is this a current diagnosis for this admission?: Yes Plan: Secondary to sinusitis with bronchitis, empiric antibiotics, chlorpheniramine, albuterol and Atrovent, flutter valve and education (2) GERD (gastroesophageal reflux disease) Is this a current diagnosis for this admission?: Yes Plan: Trial proton pump inhibitor (3) Chronic pain Is this a current diagnosis for this admission?: Yes Plan: Verify outpatient regiment and avoid opiate withdrawal (4) Anxiety Is this a current diagnosis for this admission?: Yes Plan: Verify outpatient regiment and avoid benzodiazepine withdrawal (5) Bronchitis Is this a current diagnosis for this admission?: Yes Plan: Please see #1 flutter valve and tobacco cessation (6) Tobacco dependence Is this a current diagnosis for this admission?: Yes Plan: Tobacco Dependence patient received tobacco cessation counseling and offered nicotine replacement options - Time Time Spent: 30 to 50 Minutes - Inpatient Certification Medical Necessity: Need Close Monitoring Due to Risk of Patient Decompensation
[2017-05-10] MEDS ORDERED: IPRATROPIUM/ALBUTEROL 0.5-2.5 MG/3 ML AMPUL NEB SCH (08:00)
--- NOTE | 2017-05-10 09:22 | PDOC DISCHARGE SUMMARY ---
General - Admit/Disc Date/PCP Admission Date/Primary Care Provider: 05/10/17 05:09 ADDIS SCOTT, DO Discharge Date: 05/10/17 - Discharge Diagnosis (1) Anxiety Is this a current diagnosis for this admission?: Yes (2) Bronchitis Is this a current diagnosis for this admission?: Yes (3) COPD exacerbation Is this a current diagnosis for this admission?: Yes (4) Chronic pain Is this a current diagnosis for this admission?: Yes (5) GERD (gastroesophageal reflux disease) Is this a current diagnosis for this admission?: Yes (7) Tobacco dependence Is this a current diagnosis for this admission?: Yes - Additional Information Resuscitation Status: Full Code History of Present Illness History of Present Illness: AVERY LOO JR is a 36 year old male who was brought in under observation with COPD exacerbation. The patient left AMA before I could see him. Hospital Course Hospital Course: see above Physical Exam Vital Signs: Temp Pulse Resp BP Pulse Ox 98.3 F 121 H 16 122/78 93 05/10/17 01:43 05/10/17 01:43 05/10/17 06:00 05/10/17 06:00 05/10/17 06:00 Additional comments: patient left AMA before I could see him. Results Impressions: Chest X-Ray 05/10/17 03:06 IMPRESSION: No acute cardiopulmonary findings. 2011 [employer]- All Rights Reserved
[2017-05-10] MEDS ORDERED: DOCUSATE SODIUM 100 MG CAPSULE PO SCH (10:00)
[2017-05-10] MEDS ORDERED: PREDNISONE 20 MG TABLET PO SCH (10:00)
== END 2017-05-10 09:27 | disposition left against medical advice (07) ==
LOC: ER 01:30 → EH 05:09
PROVIDERS: ADMIT Internal Medicine; ATTEND Internal Medicine
PROC: 3E0F7GC Introduction of Other Therapeutic Substance into Respiratory Tract, Via Natural or Artificial Opening (ICD-10-PCS; principal; 2017-05-10)
DX: J44.1 Chronic obstructive pulmonary disease with (acute) exacerbation (principal); F41.1 Generalized anxiety disorder; J40 Bronchitis, not specified as acute or chronic; G89.29 Other chronic pain; M54.5 Low back pain; F11.20 Opioid dependence, uncomplicated; K21.9 Gastro-esophageal reflux disease without esophagitis; F17.200 Nicotine dependence, unspecified, uncomplicated; F13.20 Sedative, hypnotic or anxiolytic dependence, uncomplicated; J32.9 Chronic sinusitis, unspecified; Z53.21 Procedure and treatment not carried out due to patient leaving prior to being seen by health care provider; R09.02 Hypoxemia; Z98.1 Arthrodesis status; Z82.5 Family history of asthma and other chronic lower respiratory diseases
CPT/HCPCS: 94640 ×2; 99285; 96375; 96365; 96366; 36415; 85025; 80048; 71045; G0378; A9270 ×2; J2930; J3475

== ENCOUNTER 2018-07-17 12:28 | Emergency (ER) | payer MEDICARE, MEDICAID ==
[2018-07-17 13:35] LABS: ABSOLUTE LYMPHOCYTES (AUTO) 1.2 10^3/uL (0.5-4.7); ABSOLUTE MONOCYTES (AUTO) 0.8 10^3/uL (0.1-1.4); ABSOLUTE NEUT (AUTO) 8.9 10^3/uL (1.7-8.2); BASOPHILS % (AUTO) 0.3 % (0-2); EOSINOPHILS % (AUTO) 0.1 % (0-6); HEMATOCRIT 45.7 % (37.9-51.0); HEMOGLOBIN 15.9 g/dL (13.5-17.0); LYMPHOCYTES % (AUTO) 11.2 % (13-45); MEAN CORPUSCULAR HEMOGLOBIN 29.1 pg (27.0-33.4); MEAN CORPUSCULAR HGB CONC 34.7 g/dL (32.0-36.0); MEAN CORPUSCULAR VOLUME 84 fl (80-97); PLATELET COUNT 286 10^3/uL (150-450); RED BLOOD COUNT 5.45 10^6/uL (4.35-5.55); RED CELL DISTRIBUTION WIDTH 13.9 % (11.5-14.0); SEGMENTED NEUTROPHILS % (AUTO) 81.4 % (42-78); TOTAL CELLS COUNTED % (AUTO) 100 %; WHITE BLOOD COUNT 10.9 10^3/uL (4.0-10.5)
[2018-07-17] MEDS ORDERED: LORAZEPAM INJ 2 MG/1 ML VIAL IV ONE ×2 (13:53→17:39)
[2018-07-17] MEDS ORDERED: METOCLOPRAMIDE HCL INJ/PF 10 MG/2 ML SDV IV ONE (13:53)
[2018-07-17] MEDS ORDERED: NORMAL SALINE 1000 ML 1,000 ML IV ONE (13:54)
[2018-07-17 13:56] LABS: ALANINE AMINOTRANSFERASE 35 U/L (21-72); ALBUMIN 5.4 g/dL (3.5-5.0); ALKALINE PHOSPHATASE 74 U/L (38-126); ANION GAP 15 (5-19); ASPARTATE AMINO TRANSFERASE 53 U/L (17-59); BILIRUBIN,DIRECT 0.3 mg/dL (0.0-0.4); BLOOD UREA NITROGEN 23 mg/dL (7-20); CALCIUM 10.3 mg/dL (8.4-10.2); CARBON DIOXIDE 23 mmol/L (22-30); CHLORIDE 101 mmol/L (98-107); GLUCOSE 124 mg/dL (75-110); POTASSIUM 3.1 mmol/L (3.6-5.0); SODIUM 139.2 mmol/L (137-145)
--- NOTE | 2018-07-17 13:59 | ER Document Report ---
ED GI/ - General Chief Complaint: Nausea Stated Complaint: WITHDRAWAL Time Seen by Provider: 07/17/18 13:23 Mode of Arrival: Ambulatory Information source: Patient Notes: Patient is a 38-year-old male who presents to the ER today for possible opioid withdrawal, patient has been on oxycodone 20 mg for greater than 15 years for chronic back pain he states and just "got tired of the way they were controlling my life, I do not want to be addicted." Patient states that he skipped his last pain management appointment and made his oxycodone stretch out but now is out of them. Patient states that he had his last pill 3 days ago. Patient admits to abdominal cramping diffusely, nausea and vomiting, some mild diarrhea. Patient states that he is very anxious. He has an appointment in 2 days with a psychiatrist and then in 1 week with a doctor to possibly start methadone. He denies any fever, history of gallbladder disease or pancreatitis. TRAVEL OUTSIDE OF THE [place] IN LAST 30 DAYS: No - Related Data Allergies/Adverse Reactions: No Known Allergies Allergy (Verified 02/15/14 10:44) Past Medical History - General Information source: Patient - Social History Smoking Status: Unknown if Ever Smoked Family History: COPD Patient has suicidal ideation: No Patient has homicidal ideation: No - Past Medical History Cardiac Medical History: Denies: Hx Coronary Artery Disease, Hx Heart Attack, Hx Hypertension Pulmonary Medical History: Reports: Hx COPD Denies: Hx Asthma, Hx Bronchitis, Hx Pneumonia Neurological Medical History: Denies: Hx Cerebrovascular Accident, Hx Seizures Renal/ Medical History: Denies: Hx Peritoneal Dialysis Musculoskeletal Medical History: Reports Hx Arthritis Past Surgical History: Reports: Hx Abdominal Surgery - "celiac artery compressi on release", Hx Neurologic Surgery, Hx Orthopedic Surgery - Lumbo-sacral fusion - Immunizations Hx Diphtheria, Pertussis, Tetanus Vaccination: No Review of Systems - Review of Systems Constitutional: No symptoms reported EENT: No symptoms reported Cardiovascular: No symptoms reported Respiratory: No symptoms reported Gastrointestinal: See HPI Genitourinary: No symptoms reported Male Genitourinary: No symptoms reported Musculoskeletal: See HPI Skin: No symptoms reported Hematologic/Lymphatic: No symptoms reported Neurological/Psychological: See HPI Physical Exam - Vital signs Vitals: Pulse Ox 98 07/17/18 12:41 - Notes Notes: PHYSICAL EXAMINATION: GENERAL: Anxious appearing, but in no acute distress. HEAD: Atraumatic, normocephalic. EYES: Pupils equal round and reactive to light, extraocular movements intact, sclera anicteric, conjunctiva are normal. NECK: Normal range of motion, supple without lymphadenopathy LUNGS: CTAB and equal. No wheezes rales or rhonchi. HEART: Regular rate and rhythm without murmurs ABDOMEN: Soft, mild epigastric tenderness. No guarding, no rebound BACK: no vertebral tenderness, normal ROM GI/: no CVA tenderness EXTREMITIES: Normal range of motion, no pitting edema. No cyanosis. NEUROLOGICAL: Cranial nerves grossly intact. Normal sensory/motor exams. PSYCH: Anxious SKIN: Warm, Dry, normal turgor, no rashes or lesions noted Course - Re-evaluation Re-evalutation: 07/17/18 17:31 Labs are unremarkable today, patient has some relief with Haldol, Benadryl and Ativan, will give detox/substance abuse mobile crisis hotline, advised to call right now to see if they can get him in somewhere, will send home with Ativan 2 mg as he has been on that for years and is also out of that, also will send home with Vistaril. - Vital Signs Vital signs: Temp Pulse Resp BP Pulse Ox 98.3 F 60 17 141/78 H 99 07/17/18 12:46 07/17/18 12:46 07/17/18 16:20 07/17/18 16:20 07/17/18 16:20 - Laboratory Result Diagrams: 07/17/18 13:14 07/17/18 13:14 Laboratory results interpreted by me: 07/17/18 07/17/18 13:14 13:14 WBC 10.9 H Seg Neutrophils % 81.4 H Lymphocytes % 11.2 L Absolute Neutrophils 8.9 H Potassium 3.1 L BUN 23 H Creatinine 1.28 H Glucose 124 H Calcium 10.3 H Total Protein 9.0 H Albumin 5.4 H Discharge - Discharge Clinical Impression: Opioid withdrawal Condition: Stable Disposition: HOME, SELF-CARE Additional Instructions: Return immediately for any new or worsening symptoms. Follow up with primary care provider, call tomorrow to make followup appointment. Call the mobile crisis number that I gave you immediately, they may be able to get you into somewhere much more quickly than what you have scheduled. Do not cancel what you have scheduled until you have another plan. Prescriptions: Hydroxyzine Pamoate [Vistaril 50 mg Capsule] 50 mg PO Q6H #30 capsule Lorazepam [Ativan] 1 mg PO Q8H #15 tablet
[2018-07-17] MEDS ORDERED: HALOPERIDOL LACTATE INJ 5 MG/1 ML VIAL IV ONE (16:07)
[2018-07-17] MEDS ORDERED: DIPHENHYDRAMINE HCL 50 MG/ML VIAL IV ONE (16:07)
[2018-07-17] MEDS ORDERED: HYDROXYZINE PAMOATE 50 MG CAPSULE PO ONE (17:39)
[2018-07-17] MEDS ORDERED: LORAZEPAM 1 MG TABLET PO ONE (18:18)
[2018-07-17 18:24] VITALS: BP 149/83
== END 2018-07-17 18:30 | disposition home or self-care (01) ==
LOC: ER 12:28
DX: F11.23 Opioid dependence with withdrawal (principal); R11.0 Nausea; R19.7 Diarrhea, unspecified; R10.84 Generalized abdominal pain; G89.29 Other chronic pain; M54.9 Dorsalgia, unspecified; Z98.1 Arthrodesis status
CPT/HCPCS: 99283; 96361; 96374; 96375; 36415; 85025; 80053; J1200; J1630; A9270 ×2; J2765; J2060; J7030

== ENCOUNTER 2020-03-17 08:33 | Emergency (ER) | payer MEDICARE, OTHER ==
--- NOTE | 2020-03-17 09:34 | ER Document Report ---
ED General - General Chief Complaint: Wrist Injury Stated Complaint: RIGHT WRIST PAIN Time Seen by Provider: 03/17/20 09:06 TRAVEL OUTSIDE OF THE [place] IN LAST 30 DAYS: No - HPI Notes: Chief complaint: Right wrist pain History of present illness: 39-year-old male states that he injured his right wrist about 3 weeks ago playing "pickle ball". Patient says he lost his footing and went down on his right wrist and a flexed position. He had a good bit of initial pain and swelling and treated this with [id number] medications. He thought it was simply a bruise or sprain and notes now the swelling has subsided but he has persistent pain in the area aggravated by movement. He comes in today specifically requesting an x-ray because he is concerned he may have a fracture. Patient states he is otherwise in good general health. He takes some alprazolam as needed for anxiety and is on no other regular medications and has no known allergies. He recently stopped smoking. He denies any abuse of drugs or alcohol. - Related Data Allergies/Adverse Reactions: No Known Allergies Allergy (Verified 03/17/20 09:01) Past Medical History - General Information source: Patient, Friend - Social History Smoking Status: Former Smoker Chew tobacco use (# tins/day): No Frequency of alcohol use: Rare Drug Abuse: None Lives with: Friend Family History: COPD - Past Medical History Cardiac Medical History: Denies: Hx Coronary Artery Disease, Hx Heart Attack, Hx Hypertension Pulmonary Medical History: Reports: Hx COPD Denies: Hx Asthma, Hx Bronchitis, Hx Pneumonia Neurological Medical History: Denies: Hx Cerebrovascular Accident, Hx Seizures Renal/ Medical History: Denies: Hx Peritoneal Dialysis Musculoskeletal Medical History: Reports Hx Arthritis Past Surgical History: Reports: Hx Abdominal Surgery - "celiac artery compression release", Hx Neurologic Surgery, Hx Orthopedic Surgery - Lumbo- sacral fusion - Immunizations Hx Diphtheria, Pertussis, Tetanus Vaccination: No Review of Systems - Review of Systems Notes: Constitutional: Negative for fever. HENT: Negative for sore throat. Eyes: Negative for visual changes. Cardiovascular: Negative for chest pain. Respiratory: Negative for shortness of breath. Gastrointestinal: Negative for abdominal pain, vomiting or diarrhea. Genitourinary: Negative for dysuria. Musculoskeletal: As per HPI. Skin: Negative for rash. Neurological: Negative for headaches, weakness or numbness. 10 point ROS negative except as marked above and in HPI. Physical Exam - Vital signs Vitals: Temp Pulse Resp BP Pulse Ox 97.7 F 98 18 144/90 H 100 03/17/20 08:45 03/17/20 08:45 03/17/20 08:45 03/17/20 08:45 03/17/20 08:45 - Notes Notes: GENERAL: Male patient approximately stated age approximately stated age appearing in no acute distress. SKIN: Good turgor no rashes. HEAD: Normocephalic atraumatic. EYES: PERRLA. EOMI. Conjunctivae and sclerae clear. NECK: Supple. No masses or thyromegaly. No adenopathy. Carotids 2+ without bruits. No JVD. BACK: Symmetrical without tenderness. CHEST: Respirations unlabored. Breath sounds clear and symmetrical. HEART: Regular rhythm. No murmur gallop or rub. ABDOMEN: Soft nontender without masses, organomegaly or rebound. Bowel sounds normally active. No bruits. EXTREMITIES: Mild swelling and tenderness over the snuffbox area right wrist. Normal range of motion some increase in pain with movement. He has a surgical scar over the wrist where he had previous surgery. No edema. No calf te nderness. Cap refill less than 1.5 seconds. Dorsalis pedis and posterior tibial pulses 3+ and symmetrical. NEUROLOGICAL: Alert and oriented x3. Nonfocal. PSYCHIATRIC: Appropriate affect. 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 Radiologist did not report any new fracture or dislocation and the appearance of the hardware is stable. He does have some tenderness over his scaphoid area. I placed him in a cock-up splint and referred him to orthopedics for follow-up. Findings, clinical impression and plan of treatment have been discussed with patient/family. Understanding of current findings and recommendations has been acknowledged by them and there is agreement regarding disposition and follow-up. - Vital Signs Vital signs: Temp Pulse Resp BP Pulse Ox 97.7 F 98 18 144/90 H 100 03/17/20 08:45 03/17/20 08:45 03/17/20 08:45 03/17/20 08:45 03/17/20 08:45 - Diagnostic Test Radiology reviewed: Image reviewed, Reports reviewed Radiology results interpreted by me: 03/17/20 10:42 Wrist X-Ray 03/17/20 09:20 IMPRESSION: No acute findings. Procedures - Immobilization Right Wrist Time completed: 11:00 Pre-Proc Neuro Vasc Exam: Normal Immobilizer type: Cock-up Performed by: PCT Post-Proc Neuro Vasc Exam: Normal Discharge - Discharge Clinical Impression: Contusion of right wrist Qualifiers: Encounter type: initial encounter Qualified Code(s): S60.211A - Contusion of right wrist, initial encounter Condition: Stable Disposition: HOME, SELF-CARE Additional Instructions: Ice and elevation. Wear splint as recommended. Take prescribed medication. Return here as needed for new or worsening symptoms. Follow-up with referral account review specialist. Prescriptions: Indomethacin 25 mg PO TID 10 Days #30 capsule Referrals: DONNA DALE DO [ACTIVE STAFF] - Follow up as needed
--- NOTE | 2020-03-17 10:28 | RADIOLOGY REPORT (SQ) ---
EXAM DESCRIPTION: WRIST RIGHT 3 VIEWS IMAGES COMPLETED DATE/TIME: 03/17/2020 9:42 am REASON FOR STUDY: bone tenderness after fall 2 weeks ago COMPARISON: None. NUMBER OF VIEWS: Four views. TECHNIQUE: AP, lateral, oblique, and scaphoid radiographic images acquired of the right wrist. LIMITATIONS: None. FINDINGS: MINERALIZATION: Normal. BONES: Old fractures of the scaphoid and ulnar styloid status post screw fixation of the scaphoid fra cture. No acute fracture identified. SOFT TISSUES: No soft tissue swelling. No foreign body. OTHER: No other significant finding. IMPRESSION: No acute findings. TECHNICAL DOCUMENTATION: JOB ID: [id number] [employer]- All Rights Reserved Reading location - IP/workstation name: [email or web address]
[2020-03-17 11:14] VITALS: BP 148/90
== END 2020-03-17 11:13 | disposition home or self-care (01) ==
LOC: ER 08:33
DX: S60.211A Contusion of right wrist, initial encounter (principal); X58.XXXA Exposure to other specified factors, initial encounter; Y93.69 Activity, other involving other sports and athletics played as a team or group
CPT/HCPCS: 99283